=== PATIENT | female | born 1970 | race Caucasian/White ===

== ENCOUNTER 2020-10-25 13:07 | Outpatient (REF) | payer MEDICAID, SELFPAY ==
[2020-10-26 09:47] LABS: C. trachomatis RNA TMA NOT DETECTED (NOT DETECTED); N. gonorrhoeae RNA TMA NOT DETECTED (NOT DETECTED)
[2020-10-27 19:12] LABS: HPV mRNA E6/E7 rflx Not Detected (Not Detected)
== END 2020-10-25 13:08 | disposition home or self-care (01) ==
LOC: HO.LAB 13:07
PROVIDERS: PCP Internal Medicine; Visit Provider Advanced Practice Midwife
DX: Z01.419 Encounter for gynecological examination (general) (routine) without abnormal findings (principal); R23.2 Flushing; N85.2 Hypertrophy of uterus; N84.1 Polyp of cervix uteri; F32.9 Major depressive disorder, single episode, unspecified
CPT/HCPCS: 36415; 87491; 87591; 87624; 88142

== ENCOUNTER → 2020-12-16 11:20 | Outpatient (BNVA) | payer MEDICAID, SELFPAY | PROVIDERS: Visit Provider Advanced Practice Midwife ==

== ENCOUNTER → 2020-12-26 11:35 | Outpatient (BNVA) | payer MEDICAID, SELFPAY | PROVIDERS: Visit Provider Advanced Practice Midwife ==

== ENCOUNTER 2021-01-02 13:35 | Outpatient (REF) | payer MEDICAID, SELFPAY ==
--- NOTE | ~2021-01-02 | MM_ITS ---
EXAMINATION: MM SCREENING DIGITAL BREAST TOMOSYNTHESIS, BILATERAL CLINICAL INFORMATION: Screening. Asymptomatic. The lifetime risk of breast cancer based on the Tyrer-Cuzick Model is 6%. COMPARISON: Mammography: 02/10/2019, 04/18/2016 TECHNIQUE: Digital breast tomosynthesis is performed in both the craniocaudal and mediolateral oblique views along with computer-aided detection (CAD). Synthesized 2D images are generated from the tomosynthesis. FINDINGS: There are scattered areas of fibroglandular density (ACR BI-RADS breast composition Category b). There are no significant masses, abnormal calcifications, or other abnormalities. Parenchymal pattern is similar to prior studies. The axilla and skin contours are unremarkable. MM/MM tomosynthesis screening BI IMPRESSION: No mammographic evidence of malignancy. ASSESSMENT: BI-RADS 1: Negative RECOMMENDATION: Routine annual mammography screening. This patient's information was entered into a reminder system with a target due date for their next mammogram.
== END 2021-01-02 13:36 | disposition home or self-care (01) ==
LOC: HO.MAMMO 13:35
PROVIDERS: Visit Provider Advanced Practice Midwife
DX: Z12.31 Encounter for screening mammogram for malignant neoplasm of breast (principal)
CPT/HCPCS: 77063; 77067

== ENCOUNTER 2021-01-04 13:02 | Outpatient (REF) | payer MEDICAID, SELFPAY ==
--- NOTE | ~2021-01-04 | US_ITS ---
EXAMINATION: PELVIC ULTRASOUND CLINICAL INFORMATION: Cervical polyp. COMPARISON: Previous pelvic ultrasound January 2010. TECHNIQUE: Transabdominal and transvaginal pelvic ultrasound was performed. Transvaginal exam was performed for better visualization of the uterus and ovaries. FINDINGS: The uterus is slightly enlarged and measures 11 x 7 x 9 cm. Uterine echotexture is heterogeneous. There are multiple focal uterine lesions seen suggestive of fibroids, at least 7. Largest lesions measure 3 x 3.1 x 2.7 cm in the left upper uterine body, 2.3 x 2.1 x 2.3 cm in the right uterine body, 1.7 x 1.3 x 1.5 cm in the right uterine fundus and 2.6 x 2.6 x 3.3 cm in the right uterine fundus. Endometrial thickness is normal measuring 0.9 cm. There are nabothian cysts in the cervix. There is question of cystic area in the endocervical canal. A definite cervical polyp is not appreciated. The right ovary is normal-appearing and measures 3.1 x 2.5 x 2.1 cm. The left ovary measures 4.3 x 2 x 3.2 cm and contains a 2 x 1.5 x 2.1 cm slightly complex cyst with internal echoes. Probably represents a physiologic corpus luteum. There is no fluid in the pelvis. US/US transvaginal IMPRESSION: Enlarged fibroid uterus. Nabothian cysts in the cervix. Question cystic area in the endocervical canal. A definite cervical polyp is not appreciated.
--- NOTE | ~2021-01-04 | US_ITS ---
EXAMINATION: PELVIC ULTRASOUND CLINICAL INFORMATION: Cervical polyp. COMPARISON: Previous pelvic ultrasound January 2010. TECHNIQUE: Transabdominal and transvaginal pelvic ultrasound was performed. Transvaginal exam was performed for better visualization of the uterus and ovaries. FINDINGS: The uterus is slightly enlarged and measures 11 x 7 x 9 cm. Uterine echotexture is heterogeneous. There are multiple focal uterine lesions seen suggestive of fibroids, at least 7. Largest lesions measure 3 x 3.1 x 2.7 cm in the left upper uterine body, 2.3 x 2.1 x 2.3 cm in the right uterine body, 1.7 x 1.3 x 1.5 cm in the right uterine fundus and 2.6 x 2.6 x 3.3 cm in the right uterine fundus. Endometrial thickness is normal measuring 0.9 cm. There are nabothian cysts in the cervix. There is question of cystic area in the endocervical canal. A definite cervical polyp is not appreciated. The right ovary is normal-appearing and measures 3.1 x 2.5 x 2.1 cm. The left ovary measures 4.3 x 2 x 3.2 cm and contains a 2 x 1.5 x 2.1 cm slightly complex cyst with internal echoes. Probably represents a physiologic corpus luteum. There is no fluid in the pelvis. US/US pelvic complete IMPRESSION: Enlarged fibroid uterus. Nabothian cysts in the cervix. Question cystic area in the endocervical canal. A definite cervical polyp is not appreciated.
== END 2021-01-04 13:03 | disposition home or self-care (01) ==
LOC: HO.US 13:02
PROVIDERS: Visit Provider Advanced Practice Midwife
DX: N84.1 Polyp of cervix uteri (principal); N85.2 Hypertrophy of uterus
CPT/HCPCS: 76830; 76856

== ENCOUNTER 2021-01-18 13:54 | Outpatient (REF) | payer MEDICAID, SELFPAY ==
[2021-01-18 15:23] LABS: Mean Corpuscular Hemoglobin 16.2 pg (27.0-33.0); Red Blood Count 4.25 X10*6/uL (4.20-5.50)
[2021-01-18 15:25] LABS: Hematocrit 28.3 % (37-47); Mean Corpuscular HGB Conc 24.4 g/dl (31.0-35.0); Mean Corpuscular Volume 66.6 fL (80-98); NRBC Pct Auto 0.3 /100WBC (0.0-0.2); PLT CLUMP 1; Red Cell Distribution Width 24.8 % (11.0-16.0)
[2021-01-18 15:54] LABS: Hemoglobin 6.9 g/dl (12.0-16.0); PLT ABN DIST 1; White Blood Count 7.4 X10*3/uL (4.8-10.8)
[2021-01-18 16:09] LABS: HCG Quantitative < 2 mIU/mL; TSH reflex Free T4 1.96 uIU/mL (0.32-4.0)
[2021-01-18 16:16] LABS: Platelet Count 184 X10*3/uL (160-400)
[2021-01-19 06:42] LABS: CT PCR NOT DETECTED (Not Detect.); NG PCR NOT DETECTED (Not Detect.)
[2021-01-19 17:51] LABS: CA-125 7 U/mL (<35)
== END 2021-01-18 13:55 | disposition home or self-care (01) ==
LOC: HO.LAB 13:54
PROVIDERS: PCP Internal Medicine; Visit Provider Obstetrics & Gynecology
DX: N93.9 Abnormal uterine and vaginal bleeding, unspecified (principal); N84.1 Polyp of cervix uteri; N92.1 Excessive and frequent menstruation with irregular cycle; N83.299 Other ovarian cyst, unspecified side; Z20.2 Contact with and (suspected) exposure to infections with a predominantly sexual mode of transmission
CPT/HCPCS: 36415; 84443; 84702; 85027; 86304; 87491; 87591; 99212

== ENCOUNTER 2021-01-19 14:26 | Outpatient (REF) | payer MEDICAID, SELFPAY | END 2021-01-19 14:27 | disposition home or self-care (01) | LOC: HO.LAB 14:26 | PROVIDERS: Visit Provider Obstetrics & Gynecology | DX: N92.1 Excessive and frequent menstruation with irregular cycle (principal); N84.1 Polyp of cervix uteri; Z98.51 Tubal ligation status | CPT/HCPCS: 57500; 58100; 58300; 88305; 99212 ==

== ENCOUNTER 2021-01-19 17:01 | Emergency (ER) | payer MEDICAID, SELFPAY ==
[2021-01-19 17:22] VITALS: BP 157/89; PULSE 85; RESP 18; TEMP 36.9; O2SAT 99; BMI 33.0
== END 2021-01-19 19:44 | disposition left against medical advice (07) ==
PROVIDERS: Emergency Provider Emergency Medicine; PCP Internal Medicine
DX: N92.0 Excessive and frequent menstruation with regular cycle (principal)
CPT/HCPCS: 99281; 99282

== ENCOUNTER → 2021-02-28 14:58 | Outpatient (BNVA) | payer MEDICAID, SELFPAY | PROVIDERS: PCP Internal Medicine; Visit Provider Obstetrics & Gynecology | DX: Z30.431 Encounter for routine checking of intrauterine contraceptive device (principal) | CPT/HCPCS: 99212 ==

== ENCOUNTER 2021-04-25 10:59 | Outpatient (REF) | payer MEDICAID, SELFPAY ==
--- NOTE | ~2021-04-25 | US_ITS ---
EXAMINATION: US PELVIS CLINICAL INFORMATION: Ovarian cyst. COMPARISON: None. TECHNIQUE: Ultrasound of the pelvis is performed using both transabdominal and transvaginal transducers along with Doppler. Transvaginal imaging is performed due to inadequate visualization transabdominally. FINDINGS: The uterus is anteverted and enlarged. The uterus measures 13.6 x 7.8 x 9.6 cm in dimension. Endometrial thickness is normal measuring 1.3 cm. An IUD is not seen. Uterine echotexture is heterogeneous. There are several focal solid uterine lesions that are stable. These measure 1.9 x 2.6 x 2.1 cm the left upper uterine body, 2.5 x 2.4 x 2.1 cm in the right upper uterine body and 0.8 x 0.5 x 0.7 cm in the posterior uterine body. There are several small myometrial cysts. There are nabothian cysts in the cervix. The right ovary is seen transabdominally only and is normal-appearing. The right ovary measures 3.7 x 1.4 x 3 cm. Left ovary is enlarged and measures 5.9 x 4.4 x 4.7 cm. There is a 5 x 4.1 x 3.8 cm complex left ovarian cyst with area of wall thickening and septation. There is no fluid in the pelvis. US/US pelvic and transvaginal IMPRESSION: Enlarged heterogeneous uterus. There are multiple focal uterine lesions and myometrial cysts. Differential would include fibroids and adenomyosis. No IUD seen. Enlarged left ovary with 5 x 4.1 x 3.8 cm slightly complex cyst. It is uncertain whether this represents interval increase in size in the cyst seen on December 2020 exam or represents a new cyst. Normal right ovary.
== END 2021-04-25 11:00 | disposition home or self-care (01) ==
LOC: HO.US 10:59
PROVIDERS: Visit Provider Obstetrics & Gynecology
DX: N83.299 Other ovarian cyst, unspecified side (principal)
CPT/HCPCS: 76830; 76856

== ENCOUNTER 2021-05-01 12:42 | Outpatient (REF) | payer MEDICAID, SELFPAY ==
--- NOTE | ~2021-05-01 | XR_ITS ---
EXAMINATION: XR ABDOMEN KUB CLINICAL INDICATION: Checking for displacement of intrauterine device COMPARISON: Pelvic ultrasound April 25, 2021 TECHNIQUE: AP view of the abdomen. FINDINGS: Nonobstructing bowel gas pattern. Mild colonic stool burden. IUD not visualized. No acute osseous abnormality. XR/XR abdomen 1V IMPRESSION: No IUD visualized.
== END 2021-05-01 12:43 | disposition home or self-care (01) ==
LOC: HO.XRAY 12:42
PROVIDERS: PCP Internal Medicine; Visit Provider Obstetrics & Gynecology
DX: T83.32XA Displacement of intrauterine contraceptive device, initial encounter (principal)
CPT/HCPCS: 74018

== ENCOUNTER → 2021-05-09 14:49 | Outpatient (BNVA) | payer MEDICAID, SELFPAY | PROVIDERS: PCP Internal Medicine; Visit Provider Obstetrics & Gynecology ==

== ENCOUNTER 2021-05-24 16:27 | Outpatient (REF) | payer MEDICAID, SELFPAY ==
[2021-05-24 18:10] LABS: Blood Urea Nitrogen 13 mg/dL (9-16); Estimated Glomerular Filt Rate > 60
== END 2021-05-24 16:28 | disposition home or self-care (01) ==
LOC: HO.LAB 16:27
PROVIDERS: PCP Internal Medicine; Visit Provider Obstetrics & Gynecology
DX: N83.299 Other ovarian cyst, unspecified side (principal)
CPT/HCPCS: 36415; 82565; 84520

== ENCOUNTER 2021-05-25 08:20 | Outpatient (REF) | payer MEDICAID, SELFPAY ==
--- NOTE | ~2021-05-25 | CT_ITS ---
EXAMINATION: CT PELVIS WITH CONTRAST CLINICAL INFORMATION: Follow-up left ovarian cyst COMPARISON: Previous pelvic ultrasound most recent 04/25/2021 TECHNIQUE: Helical scanning was performed with submillimeter collimation through the pelvis with the use of oral contrast and during bolus intravenous injection of 85 mL of Omnipaque 350 intravenous contrast. Sagittal and coronal multiplanar 2-D reconstructions were obtained. This CT examination was performed using dose optimization techniques as appropriate, variously including the following: *Automated exposure control *Adjustment of mA and/or kV according to patient size (this includes techniques or standardized protocols for targeted exams where dose is matched to indication/reason for exam; i.e. extremities or head) *Use of iterative reconstruction technique DLP: 803 mGy-cm FINDINGS: The uterus is enlarged measuring 13 x 7.5 x 9.2 cm in sagittal AP and transverse dimension. Endometrial thickness measures 8 mm. The uterus is lobulated in contour with multiple multiple hypoechoic lesions suggestive of fibroids or adenomyomas. The largest measures 2.5 cm in the right anterior upper uterine body or fundus. There are several smaller myometrial cysts. The ovaries are normal-appearing. The previously identified 5 x 4 x 4 cm complex left ovarian cyst on 04/25/2021 exam has resolved. There is no fluid in the pelvis. The bladder is not optimally distended. There is diverticulosis of the colon. Visualized bowel is otherwise unremarkable. The appendix is unremarkable. No adenopathy is seen. No hernia is seen. Bony structures are unremarkable. CT/CT pelvis w con IMPRESSION: Normal-appearing ovaries. The previously identified 5 x 4 x 4 cm left ovarian cyst on 04/25/2021 ultrasound exam has resolved. Enlarged heterogeneous uterus with multiple hypoechoic lesions suggestive of fibroids or adenomyomas and smaller myometrial cysts. Diverticulosis of the colon.
[2021-05-25] MEDS: iohexoL 350 MG/ML 100 ML INFUS..BTL IV (10:03)
== END 2021-05-25 08:21 | disposition home or self-care (01) ==
LOC: HO.CT 08:20
PROVIDERS: PCP Internal Medicine; Visit Provider Obstetrics & Gynecology
DX: N83.299 Other ovarian cyst, unspecified side (principal)
CPT/HCPCS: 72193; Q9967

== ENCOUNTER → 2021-06-05 14:18 | Outpatient (BNVA) | payer MEDICAID, SELFPAY | PROVIDERS: Visit Provider Obstetrics & Gynecology ==

== ENCOUNTER → 2024-04-23 14:04 | Outpatient (RCR) | payer MEDICAID, SELFPAY ==
[2021-01-20 09:25] VITALS: BP 167/86; PULSE 89; RESP 18; TEMP 36.7; O2SAT 100; BMI 33.5
--- NOTE | 2021-01-20 10:02 | PM.HEMONCCN ---
Subjective - Subjective Chief complaint: Consult for: Microcytic anemia. Patient: new to practice Consult date: 01/20/21 Requesting Physician: Amandeep. Primary Care Provider: Ashlie Pereira MD Medical Summary: DIAGNOSIS: IRON DEFICIENCY ANEMIA. HPI - Consult Narrative Reason for consult: Consult for: Iron deficiency anemia. Narrative: Masha Palomares is a pleasant 50 year old lady who was seen by Dr. Bernstein, on 01/18, for heavy periods. CBC revealed: WBC 7.4, HGB 6.9, HCT 28.3, MCV 66, PLT 184. ROS: She denies undue fatigability. No fever nor chills. Appetite is up and down. She has gained weight. She does get occasional headaches from time to time. Denies dizziness. No chest pain or trouble breathing. She gets occasional abdominal pain especially around the time of her periods. No heartburn indigestion. No nausea vomiting. Gets occasional diarrhea. No gross blood in the stools. Denies any urinary complaints. Her period did comes monthly however it is very heavy. Last 3-4 days. She just had a Mirena IUD placed by Dr. Bernstein. Denies joint pains muscle pain. No focal weakness. She does feel rather depressed. Gets occasional itching. Family history: Mother has circulatory issues. Denies any blood disorders. No known cancer in the family. Social history: She used to work as a house maid. She is not . She raised 5 children. Denies smoking. No alcohol. Review of Systems - Constitutional Reports no additional constitutional complaints, Reports weight gain - Eyes Reports no additional eye complaints - ENT Reports no additional ear, nose, mouth, and throat complaints - Cardiovascular Reports no additional cardiovascular complaints - Respiratory Reports no additional respiratory complaints - Gastrointestinal Reports no additional gastrointestinal complaints, Reports abdominal pain - Genitourinary Reports no additional female genitourinary complaints, Reports heavy periods - Musculoskeletal Reports no additional musculoskeletal complaints - Integumentary/Breasts Skin/Breast: Reports no additional skin complaints - Neurologic Reports no additional neurologic complaints - Psychiatric Reports no additional psychiatric complaints - Endocrine Reports no additional endocrine complaints - Hematologic/Lymphatic Reports no additional hematologic/lymphatic complaints - Allergic/Immunologic Reports no additional allergic/immunologic complaints Oncology Screenings - ECOG Performance Status ECOG Performance Status: 0 [facility] Medical History: Medical History (Last Updated 01/20/21 @ 09:34 by Hellen Nunez RN) Anemia History of depression Functional capacity: independent ambulation Patient : No Surgical History: Surgical History (Last Reviewed 01/19/21 @ 17:24 by Kiley Mcdowell) Hx of dilation and curettage Hx of tubal ligation Social History: Social History (Last Reviewed 01/19/21 @ 15:47 by Sy Bernstein MD) Alcohol History: Alcohol intake: never Nutrition Assessment: Patient : No Home Medications and Allergies Home Medications Medication Instructions Recorded Confirmed Type hydroxyzine HCl 25 mg tablet 25 mg PO BEDTIME 10/25/20 History ferrous sulfate 325 mg PO TID 01/20/21 History Allergies Allergy/AdvReac Type Severity Reaction Status Date / Time No Known Allergies Allergy Verified 01/19/21 17:22 Physical Exam Vital signs: Vital Signs Temp 98.1 F 01/20/21 09:25 Pulse 89 01/20/21 09:25 Resp 18 01/20/21 09:25 BP 167/86 H 01/20/21 09:25 Pulse Ox 100 01/20/21 09:25 Intake & Output 01/19/21 01/20/21 01/20/21 18:59 06:59 18:59 Other: Weight 80.4 kg Weight in Grams 32631 Weight 80.4 kg - Constitutional Present: no acute distress - Routine HEENT Exam Head: Present: normal inspection ENT: Present: mucous membranes moist - Routine Neck Exam Present: supple - Routine Respiratory Exam Present: CTAB - Routine Cardiovascular Exam Cardiovascular: Present: RRR, S1, S2 - Routine Abdominal Exam Present: soft, nontender - Routine Rectal Exam Patient deferred: digital exam - Routine Extremities Exam Present: nontender - Routine Skin Exam Present: intact - Routine Neurological Exam Present: alert, oriented X3 - Detailed Neurological Exam: Coma Scale Eye Opening: Spontaneous (4) Verbal Response: Oriented (5) Motor Response: Obeys commands (6) Carney Coma Scale Total: 15 - Routine Psychiatric Exam Present: depressed Hem/Onc Consult Result - Labs CBC & Chem 7: 01/20/21 10:02 01/20/21 10:02 Assessment and Plan (1) Iron deficiency anemia Status: Acute This is a pleasant 50-year-old lady, with a history of menometrorrhagia. She had labs done 01/18, hemoglobin was 6.9/28. That appears rather discordant since the Hcrit is unusually high for the degree of anemia. She does not feel too fatigued. PLAN: I will proceed with further evaluation. Will recheck CBC. Hemoglobin is still 7. Check iron studies and ferritin: . I will arrange for a blood transfusion, today. Will also arrange for IV iron. Injectofer x2, 1 week apart. She has had Mirena IUD placed for the menorrhagia. Hopefully that will resolve the root cause of the problem. She will return in 3 months for a follow-up visit. Thank you, CC: Dr. Bernstein.
[2021-01-20 10:32] LABS: MANUAL DIFF FLAG SCAN; SCAN SMEAR FLAG 1
[2021-01-20 10:34] LABS: Basophils Percent Auto 0.3 % (0-2); Eosinophils Absolute Auto 0.1 X10*3/uL (0.0-0.4); Hematocrit 29.4 % (37-47); Imm Gran Abs Auto 0.03 X10*3/uL (0.00-0.03); Imm Gran Pct Auto 0.5 % (0.0-0.4); Lymphocytes Percent Auto 16.3 % (20-40); Mean Corpuscular HGB Conc 23.8 g/dl (31.0-35.0); Mean Corpuscular Hemoglobin 16.2 pg (27.0-33.0); Mean Corpuscular Volume 68.2 fL (80-98); Monocytes Absolute Auto 0.4 X10*3/uL (0.1-1.2); Monocytes Percent Auto 6.3 % (2-11); NRBC Pct Auto 0.5 /100WBC (0.0-0.2); Neutrophils Absolute Auto 4.7 X10*3/uL (2.0-8.3); Neutrophils Percent Auto 75.6 % (45-73); PLT CLUMP 1; Red Blood Count 4.31 X10*6/uL (4.20-5.50); Red Cell Distribution Width 24.9 % (11.0-16.0)
[2021-01-20 10:37] LABS: PLT ABN DIST 1
[2021-01-20 10:51] LABS: Alanine Aminotransferase 8 U/L (0-31); Albumin Level 4.3 g/dL (3.5-5.0); Alkaline Phosphatase 51 U/L (39-117); Anion Gap 13 (12-20); Aspartate Amino Transferase 15 U/L (5-31); Bilirubin Total 0.9 mg/dL (0.0-1.0); Blood Urea Nitrogen 8 mg/dL (9-16); Carbon Dioxide 22 mmol/L (22-29); Chloride 108 mmol/L (96-108); Creatinine Clr Calc Pharmacy 80.8; Estimated Glomerular Filt Rate > 60; Glucose Random 120 mg/dL (60-115); Iron 17 mcg/dL (30-160); Percent Iron Saturation 5 % (15-50); Potassium 4.3 mmol/L (3.3-5.1); Sodium 139 mmol/L (135-145); Total Iron Binding Capacity 363 mcg/dL (228-428); Total Protein 7.1 g/dL (6.5-8.0); Unsaturated Iron Binding 346 ug/dL
[2021-01-20 11:00] LABS: Platelet Count 177 X10*3/uL (160-400); SLIDE REVIEW VERIFIED; White Blood Count 6.2 X10*3/uL (4.8-10.8)
[2021-01-20 11:10] LABS: Ferritin 25 ng/mL (10-250)
[2021-01-20 11:46] VITALS: BP 149/75; PULSE 76; RESP 18; TEMP 36.7
[2021-01-20 12:03] VITALS: BP 156/78; PULSE 84; RESP 18; TEMP 36.7
[2021-01-20 13:53] VITALS: BP 157/82; PULSE 82; RESP 18; TEMP 36.7
--- NOTE | 2021-01-20 13:55 | MHC.HEMONC ---
Patient present for intial consult hgb 6.9. Dr. Caba made aware 1 unit rbc's given. Patient dc well no s&S of tranfusion rxn, lungs CTA throughout transfusion. patient to continue on oral iron and injectofer to be booked once P.A obtained. [place] director community organization to obtaine P.A. once appointment is booked patient to be notified.
== END | disposition home or self-care (01) ==
LOC: HO.ONC 01-20 09:02
PROVIDERS: PCP Internal Medicine; Referring Provider Obstetrics & Gynecology; Visit Provider Internal Medicine Medical Oncology
DX: D50.9 Iron deficiency anemia, unspecified (principal); Z97.5 Presence of (intrauterine) contraceptive device
CPT/HCPCS: 36415; 36430; 80053; 82728; 83540; 85025; 86850; 86900; 86901; 86920; 99204; P9016

== ENCOUNTER → 2024-04-23 14:16 | Outpatient (RCR) | payer MEDICAID, SELFPAY ==
--- NOTE | 2021-01-30 10:40 | HO.HEMONCPA ---
PA FOR INJECTAFER NOT REQUIRED. DRUG COVERED UNDER MEDICAL BENEFITS.REF# [id number]
== END | disposition home or self-care (01) ==
LOC: HO.ONC 01-30 10:38
PROVIDERS: Referring Provider Obstetrics & Gynecology; Visit Provider Internal Medicine
DX: D50.9 Iron deficiency anemia, unspecified (principal)